=== PATIENT | male | born 1960 | race Caucasian/White ===

== ENCOUNTER 2024-08-15 11:34 | Inpatient (IN) | payer OTHER, SELFPAY ==
[2024-08-15] VITALS (16 sets, daily range): BP systolic 101–145; BP diastolic 71–101; BMI 32.0; BMI 31.7
--- NOTE | 2024-08-15 07:25 | ED.GENMED ---
History of Present Illness
General
Chief Complaint: Breathing Problem
Source: patient
Exam Limitations: none
Time Seen by Provider: 08/15/24 07:20
History of Present Illness
History of Present Illness:
See MDM
Past History
Past History
ED Past Medical History: CHF, HTN and Other (PE)
ED Past Surgical History: None
Social History
Tobacco: Non-smoker
Alcohol: None
Drug: None
Personal:
Living: with family
Phy Exam
Physical Exam
Physical Exam:
See MDM
Scores
Heart Failure Risk
Heart Failure Risk Score: Not Applicable
Course
Orders/Labs/Results
Orders:
Orders
08/15/24 07:43
COVID-19 Antigen Urgent
Source: Nasal Swab
Complete Blood Count/With Diff Urgent
Comprehensive Metabolic Panel Urgent
NT-proBNP Urgent
Troponin I Urgent
Influenza A+B Rapid Molecular Urgent
KIAN Source: Nasal Swab
Specimen Description:
08/15/24 08:39
CT Chest Pe Study Urgent
Comment:
Reason For Exam: SOB, hemoptysis
08/15/24 09:37
Electrocardiogram (*1) Urgent
Reason for Study: Tachycardia
EKG- Treatment ONCE
08/15/24 09:54
Diltiazem HCl [Cardizem] 20 mg IV NOW STA
08/15/24 10:26
Azithromycin 500 mg/250 ml [Zithromax Infusion] 500 mg in 250 ml IV NOW
CefTRIAXone [Rocephin] 1,000 mg IV NOW STA
Abnormal Lab Results
08/15/24
07:43
MCH 33.5 H pg
(27.0-31.0)
Absolute Monos (auto) 1.1 H 10^3/uL
(0.1-0.6)
Monocytes % 11.8 H %
(1.7-9.3)
Chloride 93 L mmol/L
(98-107)
BUN 60 H mg/dl
(9-20)
Creatinine 1.7 H mg/dL
(0.7-1.3)
Glucose 106 H mg/dl
(70-99)
Total Bilirubin 1.7 H mg/dl
(0.2-1.3)
Troponin I 0.045 H* ng/ml
08/15/24 07:43
08/15/24 07:43
Vital Signs
Initial and Last Documented VS:
Initial Vital Signs
Pulse Resp BP Pulse Ox
57 18 128/71 94
08/15/24 06:50 08/15/24 06:50 08/15/24 06:50 08/15/24 06:50
Last Documented Vital Signs
Pulse Resp BP Pulse Ox
135 18 118/75 96
08/15/24 10:06 08/15/24 06:50 08/15/24 10:06 08/15/24 09:34
MDM/Problems Addressed
Differential Diagnosis Includes:
HPI and MDM Narrative:
63-year-old male presenting for evaluation of shortness of breath and cough. Cough is productive. He denies sick contacts. The sputum is sometimes blood-tinged. He denies leg swelling or fevers
On exam, he is well-appearing nontoxic. Lungs are clear. No leg edema noted. Mild postnasal drip noted. Heart regular rate and rhythm. Patient is compliant with Xarelto making PE less likely. However, patient is complaining of mild hemoptysis
Physical exam
General: Well appearing and non-toxic
HEENT: protecting airway. Postnasal drip
Neck: appears supple
CV: No evidence of cyanosis. Regular rate and rhythm
Resp: No accessory muscle use. Lungs clear
Abd: Non-distended
Extremities: No deformities. No leg edema
Neuro: alert
Psych: Normal affect
Skin: Intact
Problems Addressed including Acute and Chronic Conditions affecting care:
1. Shortness of breath and cough
Acuity: acute
Prognosis: stable
Details: Patient is high risk, will obtain CT
2. A-fib
Acuity: acute
Prognosis: unstable
Details: Pt requiring IV cardizem
Updates
Given the elevated troponin and BNP, will obtain CT to rule out heart strain from PE
When patient returned from CT, patient felt to be in rapid A-fib. Patient states he has a history of paroxysmal A-fib. He does not feel his heart rate goes fast. It is possible that much of his symptoms have been related to more frequent rounds
of A-fib. Will give dose of Cardizem
CT negative for PE but there is evidence of multifocal pneumonia. Will start antibiotics and admit
Differential Diagnosis (but not limited to): Pneumonia, viral syndrome
Testing considered: D-dimer but he is too high risk
Drug therapy (if applicable): OTC meds, please see d/c instruction regarding Rx drugs
Amount and/or Complexity of Data Reviewed
Clinical info obtained from: Patient
External data reviewed: N/A
Labs I independently reviewed (but not limited to): Elevated troponin and BNP
Radiology: The CT scan was personally and independently reviewed. In addition, official CT report reviewed.
Pulse Ox: not hypoxic
EKG independently reviewed: A-fib with RVR, left axis, no STEMI
[facility] Amb[facility] Paramedic: Intermittent A-fib
Critical Care: N/A
Risk of Complication:
Social Determinants of health: Good social support
Discussed with other providers: Hospitalist
Escalation of Care includes Admit/Obs: Given the multifocal pneumonia and intermittent A-fib, will start antibiotics and admit
Occasional wrong word or 'sound a like' substitutions may have occurred due to the inherent limitations of voice recognition software. Read the chart carefully and recognize, using context, where substitutions have occurred.
*Critical Care Note
Total Time (30-74mins, 75-104mins- exclusive of procedures): Not Applicable
ED Attending Note
-
Portions of this chart may have been created with voice recognition software.� Occasional wrong word or��sound alike� substitutions may have occurred due to the inherent limitations of voice recognition software.
Discharge Plan
Departure
Patient Disposition: Admit
Date of Disposition: 08/15/24
Time of Disposition: 10:30
Presentation/result/management discussed w/ accepting MD/DO: Hospitalist
Discharge Problem:
Multifocal pneumonia, Atrial fibrillation with RVR
Prescriptions:
No Action
furosemide [Lasix] 20 mg Tablet
20 mg PO DAILY
Xarelto 20 mg Tablet
20 mg PO DAILY
metoprolol succinate [Toprol XL] 100 mg Tablet Extended Release 24 Hr
100 mg PO DAILY
lisinopril 10 mg Tablet
10 mg PO DAILY
Baggs Cough Drops Lozenge
3.1 mg MUCOUS MEMBRANE BIDPRN PRN (Reason: cough)
Referrals:
NONE,* [Family Provider] -
Interventions
Interventions:
*Risk Screen - Suicide Last Done: 08/15/24 06:50
*General Assessment Last Done: 08/15/24 06:50
*Neglect/Abuse Screening Last Done: 08/15/24 06:50
ED- Fall Risk Assessment Last Done: 08/15/24 06:50
*ED COVID-19 Vaccine History Last Done: 08/15/24 07:40
ED- Cardiac Assessment Last Done: 08/15/24 07:40
ED- Pulmonary Assessment Last Done: 08/15/24 07:40
Discharge Date and Time
Print Language: LUX[place]
[2024-08-15 08:03] LABS: % Basophils 0.5 % (0-2); % Eosinophils 0.2 % (0-6); % Immature Granulocytes 0.3 % (0-0.5); % Lymphocytes 21.3 % (20.5-51.1); % Monocytes 11.8 % (1.7-9.3); % Neutrophils 65.9 % (42.2-75.2); Absolute Basophils 0.1 10^3/uL (0-0.2); Absolute Monocytes 1.1 10^3/uL (0.1-0.6); Absolute Neutrophils 6.3 10^3/uL (1.4-6.5); Hematocrit 44.3 % (39.0-52.0); Hemoglobin 16.2 g/dL (13.0-18.0); Mean Corp Hgb Conc. 36.6 g/dL (33.0-37.0); Mean Corpuscular Hgb 33.5 pg (27.0-31.0); Mean Corpuscular Volume 91.5 fL (80.0-94.0); Mean Platelet Volume 9.7 fL (7.4-10.4); Nucleated Red Blood Cells % 0 % (-); Platelet Count 218 10^3/uL (130-400); Red Blood Cell Count 4.84 10^6/uL (4.70-6.10); Red Cell Dist. Width 13.1 % (11.5-14.5); White Blood Cell Count 9.5 10^3/uL (4.8-10.8)
[2024-08-15 08:21] LABS: ALT (SGPT) 29 U/L (0-50); AST (SGOT) 53 U/L (17-59); Alkaline Phosphatase 47 U/L (38-126); Blood Urea Nitrogen 60 mg/dl (9-20); Calcium 9.1 mg/dl (8.4-10.2); Carbon Dioxide 26 mmol/L (22-30); Chloride 93 mmol/L (98-107); Estimated Creatinine Clearance 49 ml/min; Glucose 106 mg/dl (70-99); Potassium 3.6 mmol/L (3.5-5.1); Sodium 135 mmol/L (135-145); Total Bilirubin 1.7 mg/dl (0.2-1.3); Total Protein 6.4 g/dl (6.3-8.2)
[2024-08-15 08:25] LABS: COVID-19 Antigen Negative (Negative)
[2024-08-15 08:37] LABS: NT-proBNP 8310 pg/ml; Troponin I 0.045 ng/ml
[2024-08-15] MEDS: CARDIZEM 20 MG IV (10:06)
[2024-08-15] MEDS: ROCEPHIN 1000 MG IV (10:37)
[2024-08-15] MEDS: ZITHROMAX INFUSION 250 IV (10:38)
--- NOTE | 2024-08-15 11:25 | HPS.HSE ---
Family Physician
-
Family Physician: * NONE
Chief Complaint
-
Cough, shortness of breath
History of Present Illness
63-year-old male here complaining of productive cough and dyspnea on exertion for the past 5 to 6 days. Denies chest pain. Denies fevers but does have sweats. Denies sick contacts. Lives with his family. Quit smoking 40 years ago. States he
last had pneumonia about 4 years ago and was hospitalized.
Medical History
Past Medical History
Past Medical History: Reports Other
Additional Past Medical History:
Paroxysmal atrial fibrillation
Chronic heart failure preserved EF, nonischemic cardiomyopathy
Essential hypertension
Pulmonary embolism with infarction
Hyperlipidemia
Past Surgical History: Reports None
Social History
Tobacco: Former Smoker
Alcohol: Occasional
Drug: None
Personal:
Living: With Family
Family History
Family History: Not pertinent
Allergies / Home Medications
Allergies reflects when Allergies were last updated in [facility].
Home Medications with original date entered in [facility]
Allergy/Medication List:
Allergies
Allergy/AdvReac Type Severity Reaction Status Date / Time
No Known Allergies Allergy Verified 08/15/24 06:49
Home Medications
furosemide 20 mg tablet (Lasix) 20 mg PO DAILY 10/01/22
rivaroxaban 20 mg tablet (Xarelto) 20 mg PO DAILY 10/08/22
eucalyptus-menthol oral mucosal lozenge 3.1 mg mucous membrane BIDPRN PRN cough 08/15/24
lisinopril 10 mg tablet 10 mg PO DAILY 08/15/24
metoprolol succinate 100 mg tablet,extended release 24 hr (Toprol XL) 100 mg PO DAILY 08/15/24
Review of Systems
-
History Source: Patient
A 12 point ROS was completed and negative except as noted: Yes
Respiratory: Reports Cough and Trouble Breathing
Physical Exam
Vital Signs
Vital Signs
Temp Pulse Resp BP Pulse Ox
97.7 F 90 18 101/78 96
08/15/24 11:11 08/15/24 10:45 08/15/24 06:50 08/15/24 10:30 08/15/24 10:45
Physical Exam
General: Well Developed, Well Nourished, No Apparent Distress and Comfortable
HEENT: NormoCephalic, Anicteric and Moist mucous membranes
Respiratory: Wheezes (Mild end expiratory wheezes)
Cardiac: S1/S2 and Regular Rhythm
GI: Soft, Non Tender and Non Distended
Genito-urinary: Deferred by me
Musculoskeletal: No Clubbing, No Cyanosis and No Edema
Skin: Warm and Dry
Neuro: AO x 3
Hematologic/Lymphatic: No Lymphadenopathy
Psych: Calm
Laboratory Results
-
08/15/24 07:43
08/15/24 07:43
Laboratory Results
Total Bilirubin 1.7 mg/dl (0.2-1.3) H 08/15/24 07:43
AST 53 U/L (17-59) 08/15/24 07:43
ALT 29 U/L (0-50) 08/15/24 07:43
Alkaline Phosphatase 47 U/L (38-126) 08/15/24 07:43
Troponin I 0.045 ng/ml H* 08/15/24 07:43
Impression/Plan
-
Community-acquired pneumonia -without sepsis. CT chest suggestive of multifocal pneumonia. No evidence of pulmonary embolism. Bilateral lower lobe bronchial wall thickening, scattered groundglass opacities involving the left upper lobe and
bilateral lower lobes with a 2.2 cm nodular consolidation in the left upper lobe.
Admit to telemetry. Continue ceftriaxone, azithromycin. Add Acapella, incentive spirometry. Check urinary antigens.
Not hypoxic currently.
ROSELIA -suspect due to volume depletion due to pneumonia induced anorexia, decreased oral intake. Hold furosemide, lisinopril. IV fluid hydration. Check labs in the morning.
Paroxysmal atrial fibrillation -transient rapid ventricular response in the emergency room, improved with IV Cardizem. Continue home dose of Toprol-XL. Continue Xarelto.
Failed cardioversion in the past.
Chronic heart failure preserved EF -stable.
Essential hypertension -stable. Hold lisinopril for ROSELIA.
History of pulmonary embolism -noted on CT chest in February 2020, involving the right lung. Lower extremity Doppler ultrasound negative at that time.
Obesity due to excess calories
KATHY suspect -reportedly had sleep study in the past but failed to follow-up.
Full code
[2024-08-15 12:01] LABS: Direct Bilirubin 0.4 mg/dl (0.0-0.4)
--- NOTE | 2024-08-15 12:16 | PHANOTE ---
08/15/24: Contacted beater machine operator office [Dr. Natarajan] to review and verify prescribed cardiac medications. Per note from last OV, patient is prescribed xarelto 20mg daily, metoprolol ER 100mg BID and diltiazem CD 120mg once daily. Per pt interview
x 2, patient is currently taking metoprolol ER 100mg ONCE daily and xarelto 20mg daily in AM.
[2024-08-15] MEDS: NSS 1000 IV (15:40)
--- NOTE | 2024-08-15 16:10 | PTCARENOTE ---
Received pt from ER.Pt awake, alert and oriented x3. Pt has no c/o pain, 97% on RA. Pt Afib on tele, arrived to floor with rates 120-150s. made aware, Cardizem gtt initiated at 5mg/hr per orders. Cardiology into see pt, gtt increased to 10mg/hr
per orders. Pt other VSS. Pt oriented to room, call chavez within reach, plan of care continues.
--- NOTE | 2024-08-15 16:35 | CON.CAR ---
Addendum entered and electronically signed by Martell Benson DO 08/16/24 12:54:
I saw and examined the patient 08/15/2024 at 16:45.
The [place] Actor's note was reviewed and I agree with the note.
Comment:
Plan:
Chronic atrial fibrillation now with rapid ventricular response in the setting of pneumonia.
Continue antibiotics and treatment of pneumonia as per primary service.
IV Cardizem for heart rate control with transition to oral Cardizem. He had stopped taking Cardizem as an outpatient.
Discussed consideration for ablation given his history of recovered cardiomyopathy.
Echo pending.
Discussed with family at bedside.
Original Note:
Consultation
Consultation Request
Date/Time Consultation Requested: 08/15/24
Date/Time Consultation Performed: 08/15/24
Requesting Provider: Dr. Kennedy
Performing Provider: Ambar Cortez PA-C for Dr. Benson
Reason for Consultation: Persistent Afib with RVR
Medical History
-
Chief Complaint: cough, SOB
History of Present Illness:
Patient came to [facility] today with SOB and cough and is being admitted with PNA, cardiology has been consulted for rapid Afib. Patient has a history of multisystem organ failure including arterial and venous thrombus, ROSELIA, liver failure and
cardiomyopathy during admission 03/26/20 to 04/03/20. His EF was down to 10 to 15% at that time and he had nonobstructive CAD by cardiac cath 03/31/20. Patient was ill and required IV milrinone during that admission, but declined cardiac MRI or
referral to a tertiary care center. Patient then developed asymptomatic rapid A-fib 09/2022 and had an unsuccessful CV. Patient was started on propafenone and had successful CV 10/08/22. Patient was seen by EP in the office 11/25/22 to discuss
possible ablation or AAD (Tikosyn), but he declined these interventions. At last office visit 01/02/2024 the patient remained in atrial fibrillation with a heart rate of 102 bpm and Cardizem CD 120 mg daily was recommended however he tells me today
he is not on cardizem at home. He also reports with increasing toprol to 100mg BID he had side effects and so decreased dose back to 100mg daily with resolution of adverse effects. Patient then came to ER today with productive cough and shortness
of breath, which has been progressive since Friday 08/10. He is being admitted with PNA. He reports he has had poor appetite. Labs showed an elevated troponin. Denies chest pain. Following CT scan the patient was noted to be in rapid A-fib. Patient
states he has been in afib for some time and typically is asymptomatic.
PMH:
Persistent Afib
Chronic Xarelto OAC
Chronic HFpEF
Improved CM EF 10-15% by ELI 2019 and improved to 60-65% by ELI 09/2022
h/o PE and possible pulmonary infarct 2019
h/o LV apical thrombus 2019
Past Medical History
Past Medical History: Other (in HPI)
Past Surgical History: Cardiac (nonobstructive CAD by cath 03/31/20, CV 09/2022)
Social History
Tobacco: Former Smoker
Alcohol: Occasional
Drug: None
Personal:
Living: With Family
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
Family History
Family History: Diabetes and Hypertension
Allergies / Home Medications
Allergy/AdvReac Type Severity Reaction Status Date / Time
No Known Allergies Allergy Verified 08/15/24 06:49
�Medication �Instructions �Recorded �Confirmed �Type
furosemide 20 mg tablet (Lasix) 20 mg PO DAILY Fluid 10/01/22 08/15/24 History
Retention/Swelling
rivaroxaban 20 mg tablet (Xarelto) 20 mg PO DAILY AFib/clot prevention 10/08/22 08/15/24 History
eucalyptus-menthol oral mucosal 3.1 mg mucous membrane BIDPRN PRN 08/15/24 08/15/24 History
lozenge cough
lisinopril 10 mg tablet 10 mg PO DAILY Blood Pressure 08/15/24 08/15/24 History
metoprolol succinate 100 mg 100 mg PO DAILY AFib/BP 08/15/24 08/15/24 History
tablet,extended release 24 hr
(Toprol XL)
Review of Systems
-
History Source: Patient and Family
All other systems: Negative unless noted
Physical Exam
Vital Signs
Temp Pulse Resp BP Pulse Ox
97.8 F 51 18 145/94 97
08/15/24 16:05 08/15/24 16:05 08/15/24 16:05 08/15/24 16:05 08/15/24 16:05
General: No acute distress, AAOX3
HEENT: EOMI
Heart: irreg irreg, S1/S2, no murmur
Lungs: Slight expiratory wheezes B/L
Abd: +BS, ND, NT, soft
Ext: No B/L LE edema
Neuro: grossly nonfocal
Lab Results
08/15/24 07:43
08/15/24 07:43
Troponin I 0.045 ng/ml H* 08/15/24 07:43
Hcy-V-Nsjnyqxewmb Pept 8310 pg/ml 08/15/24 07:43
Impression / Plan
-
PCP: Dr. Astrid Anderson
Cardiology: Dr. Natarajan
Impression:
Admitted with community acquired PNA 08/15/24
ROSELIA
Elevated Troponin
Afib with RVR
Persistent Afib
Chronic Xarelto OAC
Chronic HFpEF
Improved CM EF 10-15% by ELI 2019 and improved to 60-65% by ELI 09/2022
h/o PE and possible pulmonary infarct 2019
h/o LV apical thrombus 2019
ECHO 03/26/20: EF 10-15%, global hypokinesis with septal, anteroseptal, anterior and apical akinesis, mild concentric LVH, apical thrombus present, mild MR, severely dilated left atrium, moderate to severe TR, PAP 41 mmHg, mildly enlarged RV size,
reduced RV function
ELI 10/01/22: EF 60-65%, biatrial enlargement, no LASHAWN thrombus
Plan:
-Patient came to [facility] today with SOB and cough and is being admitted with PNA, cardiology has been consulted for rapid Afib. Patient has a history of multisystem organ failure including arterial and venous thrombus, ROSELIA, liver failure and
cardiomyopathy during admission 03/26/20 to 04/03/20. His EF was down to 10 to 15% at that time and he had nonobstructive CAD by cardiac cath 03/31/20. Patient was ill and required IV milrinone during that admission, but declined cardiac MRI or
referral to a tertiary care center. Patient then developed asymptomatic rapid A-fib 09/2022 and had an unsuccessful CV. Patient was started on propafenone and had successful CV 10/08/22. Patient was seen by EP in the office 11/25/22 to discuss
possible ablation or AAD (Tikosyn), but he declined these interventions. At last office visit 01/02/2024 the patient remained in atrial fibrillation with a heart rate of 102 bpm and Cardizem CD 120 mg daily was recommended however he tells me today
he is not on cardizem at home. He also reports with increasing toprol to 100mg BID he had side effects and so decreased dose back to 100mg daily with resolution of adverse effects. Patient then came to ER today with productive cough and shortness
of breath, which has been progressive since Friday 08/10. He is being admitted with PNA. He reports he has had poor appetite. Labs showed an elevated troponin. Denies chest pain. Following CT scan the patient was noted to be in rapid A-fib. Patient
states he has been in afib for some time and typically is asymptomatic.
-Patient with known persistent Afib for which he has refused rhythm control measures. He previously declined recommendations for ablation and AAD in the form of Tikosyn.
-was on IV cardizem in ER with improvement in HRs. likely rapid secondary to dehydration/ROSELIA and PNA. continue OP toprol
-given ROSELIA, hold OP lasix and lisinopril. continue gentle IVF
-suspect Cr will improve in AM. for now, continue OP xarelto dosing of 20mg QPM. if CrCl remains depressed in AM, would consider reducing dose
-last echo from 2019, consider repeating to reassess EF
-he reports he was told he had a 50/50 chance of cure with ablation and as was asymptomatic, opted to continue medical therapy. would consider repeat EP evaluation.
-continue treatment of PNA per primary service
-trend trop to peak, 0.045. no CP. EKG with anterolateral ST abnormalities in rapid afib. last cath from 2019 with nonobstructive CAD.
-d/w family at bedside
Data Reviewed
-
EKG: Tracing Personally Visualized and interpreted
CT Scan: Report Reviewed by me
Medical Tests (Nuc Med, Echo etc): Report Reviewed by me
Labs: Labs Reviewed by me
Old Records: Reviewed
[2024-08-15] MEDS: CARDIZEM 125 IV (16:52)
[2024-08-16] VITALS (7 sets, daily range): BP systolic 121–144; BP diastolic 80–98; BMI 32.2
[2024-08-16] MEDS: NSS 1000 IV (04:46)
[2024-08-16] MEDS: CARDIZEM 125 IV (05:04)
[2024-08-16 06:29] LABS: ALT (SGPT) 38 U/L (0-50); AST (SGOT) 50 U/L (17-59); Albumin 3.4 g/dl (3.5-5.0); Alkaline Phosphatase 50 U/L (38-126); Blood Urea Nitrogen 42 mg/dl (9-20); Calcium 8.7 mg/dl (8.4-10.2); Carbon Dioxide 25 mmol/L (22-30); Chloride 94 mmol/L (98-107); Estimated Creatinine Clearance 84 ml/min; Glucose 91 mg/dl (70-99); Potassium 3.3 mmol/L (3.5-5.1); Sodium 135 mmol/L (135-145); Total Bilirubin 1.2 mg/dl (0.2-1.3); Total Protein 5.9 g/dl (6.3-8.2); eGFR > 60.00
[2024-08-16] MEDS: ROCEPHIN 1000 MG IV (09:37)
[2024-08-16] MEDS: TOPROL XL 100 MG PO (09:38)
[2024-08-16] MEDS: STERILE WATER FOR INJECTION 10 ML IV (09:38)
[2024-08-16] MEDS: XARELTO 20 MG PO (09:40)
[2024-08-16] MEDS: ZITHROMAX 500 MG PO (09:41)
--- NOTE | 2024-08-16 10:02 | CARDSERVLU ---
Echocardiogram with Lumason completed after protocol screening completed. Allergies verified.
Patent IV site: _Right arm median cubital 20 G PC (in patient)____
IV site flushed with 0.9% NaCl pre and post administration.
Diluted bolus method utilized to enhance visualization of ventricular kothari.
Total volume given: __3__ mL
Patient tolerated all procedures well without complications.
--- NOTE | 2024-08-16 10:16 | W.PN.HOSP.TC ---
Today's Communication/Plan
-
Replete potassium
Check magnesium
TSH
Continue antibiotics
Acapella, I/S
Assessment / Plan
Assessment / Plan
Gen-AAOx3, NAD, obese
HEENT-NC, AT, anicteric, clear oral mm
Neck-supple
CV-reg, no M, +S1/S2
Lungs-clear B/L
Abd-soft, NT, ND
Ext-no edema
Musculoskeletal-no cyanosis, clubbing
Skin-warm and dry
Neuro-grossly non-focal
Psych-calm, cooperative
Community-acquired pneumonia -without sepsis. CT chest suggestive of multifocal pneumonia. No evidence of pulmonary embolism. Bilateral lower lobe bronchial wall thickening, scattered groundglass opacities involving the left upper lobe and
bilateral lower lobes with a 2.2 cm nodular consolidation in the left upper lobe. Continue ceftriaxone, azithromycin. Add Acapella, incentive spirometry. Urinary antigens negative.
Not hypoxic currently.
ROSELIA -suspect due to volume depletion due to pneumonia induced anorexia, decreased oral intake. Hold furosemide, lisinopril. ROSELIA resolved. Can resume furosemide, lisinopril in AM.
Hypokalemia -replete orally. Check magnesium.
Paroxysmal atrial fibrillation -currently rate controlled on IV Cardizem, 10 mg/hour. Continue Xarelto. Cardiology consulted for assistance. Check TSH.
Failed cardioversion in the past.
Chronic heart failure preserved EF -stable.
Essential hypertension -stable.
History of pulmonary embolism -noted on CT chest in February 2020, involving the right lung. Lower extremity Doppler ultrasound negative at that time.
Obesity due to excess calories
KATHY suspect -reportedly had sleep study in the past but failed to follow-up.
Full code
Anticipated Discharge: Within 24 hours
Subjective/Interval History
-
Date of Service: August 16, 2024
Patient seen and examined. Feeling better, bringing up more phlegm with coughing. No shortness of breath.
Objective Data
-
Labs:
Laboratory Results
08/16/24
05:15
Sodium 135
Potassium 3.3 L
Chloride 94 L
Carbon Dioxide 25
BUN 42 H
Creatinine 1.0
Glucose 91
Calcium 8.7
Total Bilirubin 1.2
AST 50
ALT 38
Alkaline Phosphatase 50
Vital Signs:
Vital Signs
Temp Pulse Resp BP Pulse Ox
97.4 F 67 16 129/90 94
08/16/24 07:47 08/16/24 09:38 08/16/24 07:47 08/16/24 09:38 08/16/24 07:47
I&O
08/15/24 08/16/24 08/17/24
06:59 06:59 06:59
Intake Total 1380 / 1380
Output Total 800 / 800
Balance 580 / 580
Review of Systems
-
History Source: Patient
All other systems: Reviewed and negative
--- NOTE | 2024-08-16 10:48 | W.PN.CARDCBS ---
Addendum entered and electronically signed by Martell Benson DO 08/16/24 11:23:
I saw and examined the patient.
The Psychiatric Technician's note was reviewed and I agree with the note.
Comment:
Plan:
Transition off of IV Cardizem.
Cardizem CD 180 mg daily
Resume Lasix and Lisinopril next 24 hrs
Cont Xarelto
Discussed the importance of compliance with CPAP as he has been noncompliant. Poorly controlled KATHY likely contributing to his recurrent AFib.
Discussed that he may ultimately benefit from ablation. He has declined this in the past. Outpt EP eval recommended
He will follow up with Dr Natarajan to discuss.
Cont pulm toilet and tx of PNA
Discussed with primary service.
Original Note:
Documented by User: Ambar Cortez PA-C 08/16/24 11:11
Today's Communication / Plan
-
wean IV cardizem. start po cardizem cd 180mg daily
continue xarelto
consider resuming OP lasix and lisinopril in next 24 hours
echo pending
would recommend OP EP evaluation
Impression / Plan
-
PCP: Dr. Astrid Anderson
Cardiology: Dr. Natarajan
Impression:
Admitted with community acquired PNA 08/15/24
ROSELIA, improved
Elevated Troponin, suspected nonischemic myocardial injury
Afib with RVR
Persistent Afib
Chronic Xarelto OAC
Chronic HFpEF
Improved CM EF 10-15% by ELI 2019 and improved to 60-65% by ELI 09/2022
h/o PE and possible pulmonary infarct 2019
h/o LV apical thrombus 2019
ECHO 03/26/20: EF 10-15%, global hypokinesis with septal, anteroseptal, anterior and apical akinesis, mild concentric LVH, apical thrombus present, mild MR, severely dilated left atrium, moderate to severe TR, PAP 41 mmHg, mildly enlarged RV size,
reduced RV function
ELI 10/01/22: EF 60-65%, biatrial enlargement, no LASHAWN thrombus
Plan:
-He presented with cough and SOB and is being treated for PNA. he reports feeling improved today
-remains in rate controlled afib on review of tele. continues on IV cardizem @10. will attempt to wean from IV cardizem to po cardizem. continue po toprol
-continue xarelto
-repeat echo pending
-would stop IVF. Cr improved. replete K. OP lasix and lisinopril can be resumed in next 24 hours
-he reports he was told he had a '50/50 chance' of cure with ablation and as was asymptomatic, opted to continue medical therapy. again discussed ablation with patient and would consider repeat EP evaluation.
-discussed importance of treatment of sleep apnea and other risk factors with regards to afib
-trend trop to peak, 0.045. no CP. EKG with anterolateral ST abnormalities in rapid afib. last cath from 2019 with nonobstructive CAD. consider repeat ischemic evaluation as OP
-will arrange OP cardiac follow up
PREADMIT DATA:
-Patient came [facility] today with SOB and cough and is being admitted with PNA, cardiology has been consulted for rapid Afib. Patient has a history of multisystem organ failure including arterial and venous thrombus, ROSELIA, liver failure and
cardiomyopathy during admission 03/26/20 to 04/03/20. His EF was down to 10 to 15% at that time and he had nonobstructive CAD by cardiac cath 03/31/20. Patient was ill and required IV milrinone during that admission, but declined cardiac MRI or
referral to a tertiary care center. Patient then developed asymptomatic rapid A-fib 09/2022 and had an unsuccessful CV. Patient was started on propafenone and had successful CV 10/08/22. Patient was seen by EP in the office 11/25/22 to discuss
possible ablation or AAD (Tikosyn), but he declined these interventions. At last office visit 01/02/2024 the patient remained in atrial fibrillation with a heart rate of 102 bpm and Cardizem CD 120 mg daily was recommended however he tells me today
he is not on cardizem at home. He also reports with increasing toprol to 100mg BID he had side effects and so decreased dose back to 100mg daily with resolution of adverse effects. Patient then came to ER today with productive cough and shortness
of breath, which has been progressive since Friday 08/10. He is being admitted with PNA. He reports he has had poor appetite. Labs showed an elevated troponin. Denies chest pain. Following CT scan the patient was noted to be in rapid A-fib. Patient
states he has been in afib for some time and typically is asymptomatic.
Progress Note - System Operator
Subjective
Date of Service: August 16, 2024
feels breathing is improved today
Objective
Labs:
08/15/24 07:43
08/16/24 05:15
Labs
Hgb 16.2 g/dL (13.0-18.0) 08/15/24 07:43
Hct 44.3 % (39.0-52.0) 08/15/24 07:43
Plt Count 218 10^3/uL (130-400) 08/15/24 07:43
Sodium 135 mmol/L (135-145) 08/16/24 05:15
Potassium 3.3 mmol/L (3.5-5.1) L 08/16/24 05:15
BUN 42 mg/dl (9-20) H 08/16/24 05:15
Creatinine 1.0 mg/dL (0.7-1.3) 08/16/24 05:15
Glucose 91 mg/dl (70-99) 08/16/24 05:15
Troponins
08/15/24
07:43
Troponin I 0.045 H*
Vital Signs and I&O:
Vital Signs
Temp Pulse Resp BP Pulse Ox
97.4 F 67 16 129/90 94
08/16/24 07:47 08/16/24 09:38 08/16/24 07:47 08/16/24 09:38 08/16/24 07:47
Vital Signs
Temp Pulse Resp BP Pulse Ox
97.4 F 67 16 129/90 94
08/16/24 07:47 08/16/24 09:38 08/16/24 07:47 08/16/24 09:38 08/16/24 07:47
Intake & Output
08/14/24 08/15/24 08/16/24 08/17/24
07:59 07:59 07:59 07:59
Intake Total 1380 / 1380
Output Total 800 / 800
Balance 580 / 580
Physical Exam
Physical Exam
GEN: No distress, awake, alert, oriented x3
HEENT: supple, anicteric, mmm, eomi
LUNGS: Mild exp wheezes on R
CV: Irreg, S1/S2, no murmur
ABD: soft, BS+, NT/ND
EXT: No cyanosis, clubbing, edema
NEURO: Gross non-focal
SKIN: Warm, pink, dry. No rash

Documented by User: Martell Benson DO 08/16/24 11:13
Impression / Plan
-
PCP: Dr. Astrid Anderson
Cardiology: Dr. Natarajan
Impression:
Admitted with community acquired PNA 08/15/24
ROSELIA, improved
Elevated Troponin, suspected nonischemic myocardial injury
Afib with RVR
Persistent Afib
Chronic Xarelto OAC
Chronic HFpEF
Improved CM EF 10-15% by ELI 2019 and improved to 60-65% by ELI 09/2022
h/o PE and possible pulmonary infarct 2019
h/o LV apical thrombus 2019
ECHO 03/26/20: EF 10-15%, global hypokinesis with septal, anteroseptal, anterior and apical akinesis, mild concentric LVH, apical thrombus present, mild MR, severely dilated left atrium, moderate to severe TR, PAP 41 mmHg, mildly enlarged RV size,
reduced RV function
ELI 10/01/22: EF 60-65%, biatrial enlargement, no LASHAWN thrombus
Plan:
-He presented with cough and SOB and is being treated for PNA. he reports feeling improved today
-remains in rate controlled afib on review of tele. continues on IV cardizem @10. will attempt to wean from IV cardizem to po cardizem. continue po toprol
-continue xarelto
-repeat echo pending
-would stop IVF. Cr improved. replete K. OP lasix and lisinopril can be resumed in next 24 hours
-he reports he was told he had a '50/50 chance' of cure with ablation and as was asymptomatic, opted to continue medical therapy. again discussed ablation with patient and would consider repeat EP evaluation.
-discussed importance of treatment of sleep apnea and other risk factors with regards to afib
-trend trop to peak, 0.045. no CP. EKG with anterolateral ST abnormalities in rapid afib. last cath from 2019 with nonobstructive CAD. consider repeat ischemic evaluation as OP
-will arrange OP cardiac follow up
PREADMIT DATA:
-Patient came to [facility] today with SOB and cough and is being admitted with PNA, cardiology has been consulted for rapid Afib. Patient has a history of multisystem organ failure including arterial and venous thrombus, ROSELIA, liver failure and
cardiomyopathy during admission 03/26/20 to 04/03/20. His EF was down to 10 to 15% at that time and he had nonobstructive CAD by cardiac cath 03/31/20. Patient was ill and required IV milrinone during that admission, but declined cardiac MRI or
referral to a tertiary care center. Patient then developed asymptomatic rapid A-fib 09/2022 and had an unsuccessful CV. Patient was started on propafenone and had successful CV 10/08/22. Patient was seen by EP in the office 11/25/22 to discuss
possible ablation or AAD (Tikosyn), but he declined these interventions. At last office visit 01/02/2024 the patient remained in atrial fibrillation with a heart rate of 102 bpm and Cardizem CD 120 mg daily was recommended however he tells me today
he is not on cardizem at home. He also reports with increasing toprol to 100mg BID he had side effects and so decreased dose back to 100mg daily with resolution of adverse effects. Patient then came to ER today with productive cough and shortness
of breath, which has been progressive since Friday 08/10. He is being admitted with PNA. He reports he has had poor appetite. Labs showed an elevated troponin. Denies chest pain. Following CT scan the patient was noted to be in rapid A-fib. Patient
states he has been in afib for some time and typically is asymptomatic.
[2024-08-16] MEDS: KCL 40 MEQ PO (11:26)
[2024-08-16 12:10] LABS: Troponin I 0.022 ng/ml
[2024-08-16] MEDS: CARDIZEM CD 180 MG PO (12:12)
[2024-08-16 12:17] LABS: TSH 0.48 uIU/ml (0.47-4.68)
--- NOTE | 2024-08-16 12:49 | CM ---
CM reviewed chart, met with patient bedside, initial assessment completed. Patient resides with his in a multiple story home, 2 steps to enter. Patient denies use of DME, reports [facility] in past (about 4 years ago, unsure agency), reports [facility] in past. Patient denies SNF history. Patient reports has not seen PCP recently, Dr. Mcnair, pharmacy [facility], confirms prescription coverage. Patient denies insecurities at home, denies any needs from CM at this time. CM will continue to
follow for all discharge planning needs.
Plan; home no needs likely.
--- NOTE | 2024-08-16 18:31 | PTCARENOTE ---
Received patient this am AAOx3. Pt on IVF and Cardizem Drip. Pt off unit this am for Echo. Pt seen by Cardiology. 11:30 IVF discontinued and Cardizem drip stopped as ordered. Pt started on PO Cardizem. Pt tolerated diet well. Offered no complaints.
Cont to assess patient status.
[2024-08-16] MEDS: KCL 20 MEQ PO (21:10)
[2024-08-17 03:28] VITALS: BP 159/98
[2024-08-17 06:00] VITALS: BMI 32.4
[2024-08-17] MEDS: CARDIZEM CD 180 MG PO (08:21)
[2024-08-17] MEDS: TOPROL XL 100 MG PO (08:21)
[2024-08-17] MEDS: ZITHROMAX 500 MG PO (08:21)
[2024-08-17] MEDS: KCL 20 MEQ PO (08:21)
[2024-08-17] MEDS: XARELTO 20 MG PO (08:22)
[2024-08-17 08:53] VITALS: BP 150/93
--- NOTE | 2024-08-17 09:34 | W.PN.HOSP.TC ---
Today's Communication/Plan
-
Await BMP
Await cardiology input
Assessment / Plan
Assessment / Plan
Gen-AAOx3, NAD, obese
HEENT-NC, AT, anicteric, clear oral mm
Neck-supple
CV-reg, no M, +S1/S2
Lungs-clear B/L
Abd-soft, NT, ND
Ext-no edema
Musculoskeletal-no cyanosis, clubbing
Skin-warm and dry
Neuro-grossly non-focal
Psych-calm, cooperative
Community-acquired pneumonia -without sepsis. CT chest suggestive of multifocal pneumonia. No evidence of pulmonary embolism. Bilateral lower lobe bronchial wall thickening, scattered groundglass opacities involving the left upper lobe and
bilateral lower lobes with a 2.2 cm nodular consolidation in the left upper lobe. Continue ceftriaxone, azithromycin. Add Acapella, incentive spirometry. Urinary antigens negative.
Not hypoxic currently.
Can change to oral antibiotics and discharge today if okay with cardiology. Follow-up with pulmonary for the lung nodule.
ROSELIA -suspect due to volume depletion due to pneumonia induced anorexia, decreased oral intake. Hold furosemide, lisinopril. ROSELIA resolved. Can resume furosemide, lisinopril in AM.
Hypokalemia -replete orally. Check magnesium. Labs pending for today.
Paroxysmal atrial fibrillation -currently rate controlled on IV Cardizem, 10 mg/hour. Continue Xarelto. Cardiology consulted for assistance. TSH normal.
Failed cardioversion in the past.
Incidental thyroid nodule -right lobe on CT scan. Can get outpatient thyroid ultrasound with primary care doctor. Discussed with patient.
Chronic heart failure preserved EF -stable.
Essential hypertension -stable.
History of pulmonary embolism -noted on CT chest in February 2020, involving the right lung. Lower extremity Doppler ultrasound negative at that time.
Obesity due to excess calories
KATHY suspect -reportedly had sleep study in the past but failed to follow-up. Recommend compliance with CPAP given risk for recurrent atrial fibrillation.
Full code
Dispo -discharge if okay with cardiology. Outpatient follow-up. I provided a report of the CT chest to the patient with the findings.
33 min spent in discharge process.
Anticipated Discharge: Today
Subjective/Interval History
-
Date of Service: August 17, 2024
Patient seen and examined. Feels much better. No complaints.
Objective Data
-
Labs:
Laboratory Results
08/17/24
09:04
Sodium Pending
Potassium Pending
Chloride Pending
Carbon Dioxide Pending
BUN Pending
Creatinine Pending
Glucose Pending
Calcium Pending
Vital Signs:
Vital Signs
Temp Pulse Resp BP Pulse Ox
98.2 F 74 18 150/93 98
08/17/24 08:53 08/17/24 08:53 08/17/24 08:53 08/17/24 08:53 08/17/24 08:53
I&O
08/16/24 08/17/24 08/18/24
06:59 06:59 06:59
Intake Total 1380 / 1380 1160 / 1160
Output Total 800 / 800 625 / 625
Balance 580 / 580 535 / 535
Review of Systems
-
History Source: Patient
All other systems: Reviewed and negative
[2024-08-17 10:13] LABS: Blood Urea Nitrogen 18 mg/dl (9-20); Calcium 9.1 mg/dl (8.4-10.2); Carbon Dioxide 31 mmol/L (22-30); Chloride 96 mmol/L (98-107); Estimated Creatinine Clearance 104 ml/min; Glucose 162 mg/dl (70-99); Potassium 3.9 mmol/L (3.5-5.1); Sodium 138 mmol/L (135-145); eGFR > 60.00
--- NOTE | 2024-08-17 10:50 | W.PN.CARDCBS ---
Addendum entered and electronically signed by Reynaldo Harris DO 08/17/24 17:42:
I saw and examined the patient.
The Internal Combustion Engine Inspector's note was reviewed and I agree with the note.
Comment:
Patient resting comfortably in chair, no cp, sob, palpitations, or weakness.
Tele AF, rate controlled
Continue rate control with Cardizem 180 daily, Toprol XL 100 daily
Xarelto, 20 mg daily for stroke risk reduction
Continue lasix, ACEI, lab work 1 week
Stable for DC from CV standpoint, follow-up as scheduled
Original Note:
Today's Communication / Plan
-
Continue Cardizem CD 180mg daily, Toprol XL 100mg daily
Continue Xarelto 20mg daily
Resume lasix and lisinopril in AM
BMP in 1 week
Follow up arranged.
Impression / Plan
-
PCP: Dr. Astrid Anderson
Cardiology: Dr. Natarajan
Impression:
Admitted with community acquired PNA 08/15/24
ROSELIA, improved
Elevated Troponin, suspected nonischemic myocardial injury
Afib with RVR
Persistent Afib
Chronic Xarelto OAC
Chronic HFpEF
Improved CM EF 10-15% by ELI 2019 and improved to 60-65% by ELI 09/2022
h/o PE and possible pulmonary infarct 2019
h/o LV apical thrombus 2019
ECHO 03/26/20: EF 10-15%, global hypokinesis with septal, anteroseptal, anterior and apical akinesis, mild concentric LVH, apical thrombus present, mild MR, severely dilated left atrium, moderate to severe TR, PAP 41 mmHg, mildly enlarged RV size,
reduced RV function
ELI 10/01/22: EF 60-65%, biatrial enlargement, no LASHAWN thrombus
Echo 08/16/2024: EF 50-55%, mild cLVH, mild TR, estimated PAP 45-50 mmHg
Plan:
-He presented with cough and SOB and is being treated for PNA. Feeling improved.
-In rapid atrial fibrillation on arrival. HR improved. Continue Cardizem 180mg daily and Toprol 100mg daily.
-Continue Xarelto 20mg daily.
-Will discuss options for rhythm control as OP. Discussed importance of treatment of sleep apnea and other risk factors with regards to afib
-Echo 08/16 with preserved EF as noted above.
-ROSELIA improved w/ IVFs and holding lasix and lisinopril. Would resume at discharge and check BMP in 1 week.
-Elevated troponin noted this admission, peaking at 0.045 and trending down thereafter. Suspect nonischemic myocardial injury in the setting of PNA and rapid afib. Consider repeat ischemic eval as OP.
-Stable for discharge. Cardiology follow up arranged.
PREADMIT DATA: -[facility] with [facility]B and cough and is being admitted with PNA, cardiology has been consulted for rapid Afib. Patient has a history of multisystem organ failure including arterial and venous thrombus, ROSELIA, liver failure
and cardiomyopathy during admission 03/26/20 to 04/03/20. His EF was down to 10 to 15% at that time and he had nonobstructive CAD by cardiac cath 03/31/20. Patient was ill and required IV milrinone during that admission, but declined cardiac MRI or
referral to a tertiary care center. Patient then developed asymptomatic rapid A-fib 09/2022 and had an unsuccessful CV. Patient was started on propafenone and had successful CV 10/08/22. Patient was seen by EP in the office 11/25/22 to discuss
possible ablation or AAD (Tikosyn), but he declined these interventions. At last office visit 01/02/2024 the patient remained in atrial fibrillation with a heart rate of 102 bpm and Cardizem CD 120 mg daily was recommended however he tells me today
he is not on cardizem at home. He also reports with increasing toprol to 100mg BID he had side effects and so decreased dose back to 100mg daily with resolution of adverse effects. Patient then came to ER today with productive cough and shortness
of breath, which has been progressive since Friday 08/10. He is being admitted with PNA. He reports he has had poor appetite. Labs showed an elevated troponin. Denies chest pain. Following CT scan the patient was noted to be in rapid A-fib. Patient
states he has been in afib for some time and typically is asymptomatic.
Progress Note - Hoop Rolls Operator
Subjective
Date of Service: August 17, 2024
Feeling well. no compaints.
Objective
Labs:
08/15/24 07:43
08/17/24 09:04
Labs
Hgb 16.2 g/dL (13.0-18.0) 08/15/24 07:43
Hct 44.3 % (39.0-52.0) 08/15/24 07:43
Plt Count 218 10^3/uL (130-400) 08/15/24 07:43
Sodium 138 mmol/L (135-145) 08/17/24 09:04
Potassium 3.9 mmol/L (3.5-5.1) 08/17/24 09:04
BUN 18 mg/dl (9-20) 08/17/24 09:04
Creatinine 0.8 mg/dL (0.7-1.3) 08/17/24 09:04
Glucose 162 mg/dl (70-99) H 08/17/24 09:04
Troponins
08/15/24 08/16/24
07:43 11:35
Troponin I 0.045 H* 0.022
Vital Signs and I&O:
Vital Signs
Temp Pulse Resp BP Pulse Ox
98.2 F 74 18 150/93 98
08/17/24 08:53 08/17/24 08:53 08/17/24 08:53 08/17/24 08:53 08/17/24 08:53
Vital Signs
Temp Pulse Resp BP Pulse Ox
98.2 F 74 18 150/93 98
08/17/24 08:53 08/17/24 08:53 08/17/24 08:53 08/17/24 08:53 08/17/24 08:53
Intake & Output
08/15/24 08/16/24 08/17/24 08/18/24
06:59 06:59 06:59 06:59
Intake Total 1380 / 1380 1160 / 1160
Output Total 800 / 800 625 / 625
Balance 580 / 580 535 / 535
Physical Exam
Physical Exam
GEN: No distress, awake, alert, oriented x3
HEENT: supple, anicteric, mmm, eomi
LUNGS: CTA b/l, no wheezes
CV: Irreg, S1/S2, no murmur
EXT: No cyanosis, clubbing, edema
NEURO: Gross non-focal
SKIN: Warm, pink, dry. No rash
--- NOTE | 2024-08-17 11:41 | CM ---
Met with patient at bedside; reported his will provide transport home
Chart reviewed: Attending waiting for BMP and cardiology input
Plan: Discharge to home today; no needs
[2024-08-17 11:50] VITALS: BP 125/79
--- NOTE | 2024-08-17 12:42 | W.DS.TRANS ---
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
-
Discharge Instructions:
Discharge Diagnosis/Procedures Multifocal community-acquired pneumonia
Rapid atrial fibrillation
thyroid nodule
Lung nodule
Diet Regular
Activity As tolerated
Driving Restrictions As prior to admission
Bathing Restrictions None
Blood Work BMP in 1-2 weeks
Instructions:
Stand-Alone Forms:
Changes to Home Medications: No
Discharge Medications:
DC Medications w/original date entered in [employer]
furosemide 20 mg tablet (Lasix) 20 mg PO DAILY Fluid Retention/Swelling 10/01/22
rivaroxaban 20 mg tablet (Xarelto) 20 mg PO DAILY AFib/clot prevention 10/08/22
lisinopril 10 mg tablet 10 mg PO DAILY Blood Pressure 08/15/24
metoprolol succinate 100 mg tablet,extended release 24 hr (Toprol XL) 100 mg PO DAILY AFib/BP 08/15/24
azithromycin 500 mg tablet 500 mg PO DAILY 2 days #2 tabs 08/17/24
cefuroxime axetil 500 mg tablet 500 mg PO BID #10 tabs 08/17/24
diltiazem HCl 180 mg capsule,extended release 24 hr 180 mg PO DAILY #30 caps 08/17/24
potassium chloride 20 mEq tablet,extended release(part/cryst) 20 meq PO DAILY #7 tabs 08/17/24
Home Medication Changes
Pending Results: No
[2024-08-17] MEDS: ROCEPHIN 1000 MG IV (13:05)
[2024-08-17] MEDS: STERILE WATER FOR INJECTION 10 ML IV (13:05)
== END 2024-08-17 15:18 | disposition home or self-care (01) | DRG 194 ==
LOC: 4 EAST ACU 11:34
PROVIDERS: Physician Assistant; ADMITTING PHYSICIAN Hospitalist; CONSULT PHYSICIAN Nuclear Medicine Nuclear Cardiology; EMERGENCY PHYSICIAN Student in an Organized Health Care Education/Training Program
DX: J18.9 Pneumonia, unspecified organism (principal); I42.8 Other cardiomyopathies; I50.32 Chronic diastolic (congestive) heart failure; I48.19 Other persistent atrial fibrillation; N17.9 Acute kidney failure, unspecified; I5A Non-ischemic myocardial injury (non-traumatic); E66.09 Other obesity due to excess calories; E87.6 Hypokalemia; E04.1 Nontoxic single thyroid nodule; R91.1 Solitary pulmonary nodule; G47.33 Obstructive sleep apnea (adult) (pediatric); E78.5 Hyperlipidemia, unspecified; I11.0 Hypertensive heart disease with heart failure; Z86.711 Personal history of pulmonary embolism; Z87.891 Personal history of nicotine dependence; Z79.01 Long term (current) use of anticoagulants; Z68.32 Body mass index [BMI] 32.0-32.9, adult; Z11.52 Encounter for screening for COVID-19; Z83.3 Family history of diabetes mellitus; Z82.49 Family history of ischemic heart disease and other diseases of the circulatory system; Z91.199 Patient's noncompliance with other medical treatment and regimen due to unspecified reason
CPT/HCPCS: 71275; 80048; 80053; 82248; 83735; 83880; 84443; 84484; 85025; 87449; 87502; 87811; 87899; 93005; 93306; 96365; 96375; 99285; Q9950; Q9967

== ENCOUNTER 2024-09-08 19:12 | Emergency (ER) | payer OTHER, SELFPAY ==
[2024-09-08 19:14] VITALS: BP 148/92
[2024-09-08 19:28] VITALS: BP 152/107; BMI 33.7
[2024-09-08 19:33] LABS: % Eosinophils 4.8 % (0-6); % Immature Granulocytes 0.3 % (0-0.5); % Lymphocytes 36.1 % (20.5-51.1); % Monocytes 10.3 % (1.7-9.3); % Neutrophils 47.5 % (42.2-75.2); Absolute Basophils 0.1 10^3/uL (0-0.2); Absolute Eosinophils 0.3 10^3/uL (0-0.7); Absolute Lymphocytes 2.2 10^3/uL (1.2-3.4); Absolute Monocytes 0.6 10^3/uL (0.1-0.6); Absolute Neutrophils 2.9 10^3/uL (1.4-6.5); Hematocrit 45.9 % (39.0-52.0); Hemoglobin 16.2 g/dL (13.0-18.0); Mean Corp Hgb Conc. 35.3 g/dL (33.0-37.0); Mean Corpuscular Hgb 33.8 pg (27.0-31.0); Mean Corpuscular Volume 95.6 fL (80.0-94.0); Mean Platelet Volume 8.9 fL (7.4-10.4); Nucleated Red Blood Cells % 0 % (-); Platelet Count 199 10^3/uL (130-400); Red Cell Dist. Width 13.1 % (11.5-14.5); White Blood Cell Count 6.2 10^3/uL (4.8-10.8)
[2024-09-08 19:42] VITALS: BP 135/90
[2024-09-08 19:52] LABS: Blood Urea Nitrogen 17 mg/dl (9-20); Carbon Dioxide 31 mmol/L (22-30); Chloride 104 mmol/L (98-107); Estimated Creatinine Clearance 95 ml/min; Glucose 105 mg/dl (70-99); Sodium 147 mmol/L (135-145); eGFR > 60.00
[2024-09-08 19:58] LABS: Amphetamines Negative (Negative); Barbiturates Negative (Negative); Benzodiazepines Negative (Negative); Buprenorphine Negative (Negative); Cocaine Negative (Negative); Marijuana Negative (Negative); Methadone Negative (Negative); Methamphetamines Negative (Negative); Opiates Negative (Negative); Phencyclidine Negative (Negative); Tricyclic Antidepressants Negative (Negative)
[2024-09-08 20:00] VITALS: BP 110/85
[2024-09-08 20:09] LABS: Alcohol 340 mg/dl
--- NOTE | 2024-09-08 20:29 | ED.CVA ---
History of Present Illness
General
Chief Complaint: CVA/TIA Symptoms
Source: patient and spouse
Exam Limitations: none
Time Seen by Provider: 09/08/24 19:14
Nursing documentation reviewed up to this point in time: agreed with
Onset of Stroke Symptoms
Onset of symptoms known: No
Time pt last seen normal is known: Yes
Date last time pt seen normal: 09/07/24
Time last time pt seen normal: 08:00
History of Present Illness
History of Present Illness:
This is a 64-year-old gentleman who has history of A-fib chronically maintained on Xarelto, history of hypertension. He also has a history of nonischemic cardiomyopathy, LV thrombus without CA, PE and infarction with multi system dysfunction february
2019. Thought to be myocarditis in nature but no definitive cause. Since that hospitalization cardiomyopathy and LV thrombus has resolved.
He was recently hospitalized last month for community-acquired pneumonia. Found to have A-fib with rapid ventricular response, diltiazem was added.
He recovered uneventfully and went away yesterday on a 1 day trip, returning this afternoon and upon returning she found that her was asleep. Upon waking this evening he seemed to be confused, staggering and he has no recall as to the
events over the past 18 hours.
He denies pain, specifically no headache, no neck nor back pain, no chest pain, no abdominal pain, no nausea nor vomiting. He denies weakness nor numbness, no dizziness nor lightheadedness.
He denies alcohol nor drug use.
No history of similar episodes of amnesia in the past.
Past History
Past History
ED Past Medical History: Arrthythmia (Atrial fibrillation), CHF, HTN and Other (February 2020: Acute biventricular heart failure with LV thrombus, PE, multisystem organ failure-unclear cause but thought to be myocarditis in nature. Has since recovered.)
ED Past Surgical History: Cardiac (A-fib ablation)
Social History
Tobacco: Non-smoker
Alcohol: Occasional
Drug: None
Personal:
Living: with family
Employment: Employed
Family History
Family History: Other (Noncontributory)
Phy Exam
Physical Exam
Physical Exam:
GENERAL: 64-year-old gentleman appears his stated age, awake and alert, pleasant, easily communicative and appears in no acute distress. Oriented x 3. Following all commands.
EYE: pupils equal and reactive. Extraocular muscles intact. Anicteric. The head is normocephalic, atraumatic.
NECK: Supple, nontender, no meningismus, no significant adenopathy.
ENT: posterior pharynx is clear, oral mucosa is mildly dry. TM clear b/l, nares patent. Questionable odor of alcohol to the patient's breath.
CARDIAC: Irregularly irregular at a rate of 80-90, no murmur. No palpable chest wall tenderness.
LUNGS: Clear breath sounds bilaterally, no acute respiratory distress, no wheezes/rales/rhonchi
ABDOMEN: Soft, nondistended, without focal tenderness, no r/g, no cvat. normoactive BS.
BACK: No midline bony tenderness.
NEUROLOGICAL: Alert and oriented x3, no focal neuro deficits. Gait is hart and steady.
SKIN: Warm and dry, normal color, skin intact. No rash.
MUSCULOSKELETAL: No C/C/E. peripheral pulses are full and equal b/l. No palpable tenderness.
PSYCH: Normal and appropriate interaction.
NIH Stroke Score
Level of Consciousness: 0 - Alert
LOC questions: 0-Answers both correctly
LOC Commands: 0-Performs both correctly
Best Gaze: 0-Normal
Visual Martin: 0=Normal, no visual loss
Facial palsy: 0=Normal, symmetrical
Motor - Right Arm: 0=No drift 10 seconds
Motor - Left Arm: 0=No drift 10 seconds
Motor - Right Le-No drift 5 seconds
Motor - Left Le-No drift 5 seconds
Limb Ataxia: 0-Absent
Sensation: 0-Normal
Best Language: 0-No aphasia
Dysarthria: 0-Normal
Extinction and Inattention: 0-No abnormality
Total Score:: 0
Alteplase Contraindication
Reasons for NON-Treatment with Thrombolytics: Use of any novel anticoagulant (Pradaxa, Xarelto) in the last 48 hours (Maintained on Xarelto. NIH stroke scale of 0. No indication for thrombolytics.)
Course
Orders/Labs/Results
Orders:
Orders
09/08/24 19:25
Alcohol Urgent
Basic Metabolic Panel Urgent
Complete Blood Count/With Diff Urgent
09/08/24 19:28
Electrocardiogram (*1) Urgent
Reason for Study: Vertigo / Dizzy
Head wo Contrast CT [CT Head W/o Iv Contrast] Urgent
Comment:
Reason For Exam: tia sx
09/08/24 19:29
Add On- LAB Urgent
Tests Added?: etoh
EKG- Treatment ONCE
09/08/24 19:41
Urine Drug Abuse Screen Urgent
Date Specimen was Collected: 09/08/24
Time Specimen was Collected: 19:39
Abnormal Lab Results
09/08/24
19:25
MCV 95.6 H fL
(80.0-94.0)
MCH 33.8 H pg
(27.0-31.0)
Monocytes % 10.3 H %
(1.7-9.3)
Sodium 147 H mmol/L
(135-145)
Carbon Dioxide 31 H mmol/L
(22-30)
Glucose 105 H mg/dl
(70-99)
09/08/24 19:25
09/08/24 19:25
Vital Signs
Initial and Last Documented VS:
Initial Vital Signs
Temp Pulse Resp BP Pulse Ox
98.4 F 90 24 148/92 96
09/08/24 19:14 09/08/24 19:14 09/08/24 19:14 09/08/24 19:14 09/08/24 19:14
Last Documented Vital Signs
Temp Pulse Resp BP Pulse Ox
98.4 F 90 24 148/92 96
09/08/24 19:14 09/08/24 19:14 09/08/24 19:14 09/08/24 19:14 09/08/24 19:14
MDM/Problems Addressed
Differential Diagnosis Includes:
Patient presents with episode of transient global amnesia. Reports minimal recall of the events over the past 12 to 18 hours.
There is no focal neurodeficits. No evidence of trauma on exam.
Completely oriented x 3, knows his family, can recite his medications.
I do have concern for alcohol like odor to his breath, concern for alcohol intoxication, versus other intoxication.
NIH stroke scale of 0. Chronically maintained on Xarelto. No indication for thrombolytics.
EKG shows A-fib with controlled ventricular response. According to , A-fib is chronic.
Will check CT of the head, laboratory studies including alcohol level and UDS.
Chronic conditions affecting care: HTN, Cardiomyopathy and Arrhythmia (Atrial fibrillation)
*Radiology
Radiology exam reviewed: radiology read reviewed (CT of the head is unremarkable)
*Pulse Oximetry
Patient hypoxic: no
*EKG
Interpreted by ED Provider?: Yes
Comparison EKG: changes noted (Chronic A-fib, ventricular response has improved from 141 August 15, 2024 to now 84.)
Rate: normal
Rhythm: a-fib
Bostic: normal axis
Interval: normal QT interval
QRS Pattern: normal QRS
Ischemia: no ischemia
*Data Conversion Operator Interpretation
Rate: normal
Interpretation: normal
Rhythm: a-fib
*Critical Care Note
Total Time (30-74mins, 75-104mins- exclusive of procedures): Not Applicable
Data Reviewed
Review of Other/Old Records Reveals: Records (Hospitalization 1 month ago for community-acquired pneumonia) and Other (Records from electrical cardioversion September 2022)
Source: patient and spouse
Update Note
Update Note:
Patient remains bright and alert, oriented x 3. Offers no complaints.
CT of the head is unremarkable.
Labs are all unremarkable save for significantly elevated alcohol level of 340.
Upon further questioning patient now admits to alcohol consumption and now notes that patient's alcohol use has been a sporadic issue and she suspects that he has been 'hiding his alcohol consumption from her'
Patient states he had been sober for approximately 4 to 5 months but then resumed. He denies withdrawal symptoms, denies becoming shaky when he quits drinking.
I had a lengthy discussion with patient regarding his alcohol use and the fact that he is bright and alert with significantly elevated alcohol level I have significant concern for near daily, more likely daily alcohol use.
As he is chronically maintained on Xarelto, this combination is potentially deadly.
He has been encouraged to significantly curtail, ideally discontinue all alcohol consumption.
Will discharge to home with recommendation for follow-up with PCP as well as his primary family medicine resident.
ED Attending Note
-
Portions of this chart may have been created with voice recognition software.� Occasional wrong word or��sound alike� substitutions may have occurred due to the inherent limitations of voice recognition software.
Discharge Plan
Departure
Patient Disposition: Home (Routine Discharge)
Date of Disposition: 09/08/24
Time of Disposition: 20:29
Patient with high blood pressure during this ER visit?: No
Condition: Good
Discharge Problem:
Acute alcohol intoxication
Prescriptions:
No Action
furosemide [Lasix] 20 mg Tablet
20 mg PO DAILY
Xarelto 20 mg Tablet
20 mg PO DAILY
metoprolol succinate [Toprol XL] 100 mg Tablet Extended Release 24 Hr
100 mg PO DAILY
lisinopril 10 mg Tablet
10 mg PO DAILY
diltiazem HCl 180 mg Capsule,Extended Release 24hr
180 mg PO DAILY Qty: 30 0RF
potassium chloride 20 mEq Tablet,Er Particles/Crystals
20 meq PO DAILY Qty: 7 0RF
cefuroxime axetil 500 mg tablet
500 mg PO BID Qty: 10 0RF
azithromycin 500 mg tablet
500 mg PO DAILY 2 Days Qty: 2 0RF
Interventions
Interventions:
*Risk Screen - Suicide Last Done: 09/08/24 20:22
*General Assessment Last Done: 09/08/24 20:22
*Neglect/Abuse Screening Last Done: 09/08/24 20:22
*ED COVID-19 Vaccine History Last Done: 09/08/24 20:22
ED- Pulmonary Assessment Last Done: 09/08/24 20:14
ED- Neurological Assessment Last Done: 09/08/24 20:14
ED- Cardiac Assessment Last Done: 09/08/24 20:14
Discharge Date and Time
Discharge Date/Time: 09/08/24 20:44
Print Language: MONGOLIAN
== END 2024-09-08 20:44 | disposition home or self-care (01) ==
LOC: EMR 19:12
PROVIDERS: EMERGENCY PHYSICIAN Emergency Medicine
DX: F10.129 Alcohol abuse with intoxication, unspecified (principal); Y90.8 Blood alcohol level of 240 mg/100 ml or more; I48.91 Unspecified atrial fibrillation; I11.0 Hypertensive heart disease with heart failure; I50.82 Biventricular heart failure; I42.8 Other cardiomyopathies; Z79.01 Long term (current) use of anticoagulants
CPT/HCPCS: 99284; 70450; 80048; 80306; 82077; 85025; 93005